=== PATIENT | male | born 1960 | race Caucasian/White ===

== ENCOUNTER 2020-01-07 14:30 | Inpatient (IN) | payer MEDICARE, MEDICAID ==
[~2020-01-07] VITALS: Ht 165.1 cm; Wt 81.6 kg
[2020-01-07] MEDS ORDERED: SODIUM CHLORIDE 0.9% 1,000 ML IV ONE (15:06)
[2020-01-07] MEDS ORDERED: IPRATROPIUM BROMIDE (0.02%) 0.5MG/2.5ML NEB HHN STA (15:36)
[2020-01-07] MEDS ORDERED: ALBUTEROL (0.083%) 2.5MG/3ML NEB HHN STA (15:36)
[2020-01-07 15:40] LABS: CHLORIDE 106 mEq/L (98-107)
[2020-01-07 15:43] LABS: BASOPHILS % 0.7 % (0.0-2.0); HEMATOCRIT. 52.8 % (42.0-52.0); HEMOGLOBIN. 18.5 g/dL (14.0-18.0); INR 0.9; LYMPHOCYTES % 35.3 % (20.0-50.0); MEAN CORPUSCULAR HEMOGLOBIN 31.9 pg (28.0-32.0); MEAN PLATELET VOLUME 10.1 fl (7.4-10.4); MONOCYTES % 8.1 % (2.0-8.0); NEUTROPHILS % 51.9 % (40.0-76.0); PLATELET 196 x1000/uL (130-400); PROTHROMBIN TIME 10.2 sec (9.6-11.0); RED CELL DISTRIBUTION WIDTH 13.9 % (11.6-14.6)
[2020-01-07 15:45] LABS: ETHANOL BLOOD < 10 mg/dL
[2020-01-07] MEDS ORDERED: LORAZEPAM 2MG/ML CPJ IV ONE (15:45)
[2020-01-07 16:13] LABS: CREATINE KINASE 89 IU/L (39-308)
[2020-01-07 18:09] LABS: CLARITY URINE CLEAR (CLEAR); COLOR URINE YELLOW (YELLOW); KETONES URINE NEGATIVE (NEGATIVE); LEUKOCYTE ESTERASE URINE TRACE (NEGATIVE); NITRITE URINE NEGATIVE (NEGATIVE); OCCULT BLOOD URINE TRACE (NEGATIVE); PH URINE 7.5 (4.5-8.0); PROTEIN URINE TRACE (NEGATIVE); SPECIFIC GRAVITY URINE 1.018 (1.005-1.030)
[2020-01-07] MEDS ORDERED: POTASSIUM CHLORIDE 20MEQ TABLET SR PO ONE (18:15)
[2020-01-07 18:32] LABS: *AMPHETAMINES SCREEN URINE NEGATIVE (NEGATIVE); *BARBITURATES SCREEN URINE NEGATIVE (NEGATIVE); *COCAINE SCREEN URINE NEGATIVE (NEGATIVE); CANNABINOID URINE SCREEN NEGATIVE (NEGATIVE); METHADONE URINE SCREEN NEGATIVE (NEGATIVE); OPIATES URINE SCREEN NEGATIVE (NEGATIVE)
[2020-01-07 18:33] LABS: *BENZODIAZEPINES SCREEN URINE NEGATIVE (NEGATIVE)
[2020-01-07 18:36] LABS: PHENCYCLIDINE URINE SCREEN NEGATIVE (NEGATIVE)
[2020-01-07] MEDS ORDERED: CEFTRIAXONE 1 G PREMIX 50 ML IV ONE (18:45)
[2020-01-07] MEDS ORDERED: ALBUTEROL (0.083%) 2.5MG/3ML NEB ONE (19:47)
[2020-01-07] MEDS ORDERED: IPRATROPIUM BROMIDE (0.02%) 0.5MG/2.5ML NEB ONE (19:48)
[2020-01-07] MEDS ORDERED: ONDANSETRON HCL 4MG/2ML INJ IV PRN (21:00)
[2020-01-07] MEDS ORDERED: ACETAMINOPHEN 325MG TABLET PO PRN ×2 (21:00)
[2020-01-07] MEDS ORDERED: LORAZEPAM 0.5MG TABLET PO PRN (21:00)
[2020-01-07] MEDS ORDERED: DEXTROSE 50% WATER 50ML SYRINGE IV PRN (21:00)
[2020-01-07] MEDS ORDERED: CEFTRIAXONE 1 G PREMIX 50 ML IV SCH (21:00)
[2020-01-07] MEDS ORDERED: CLONIDINE 0.1MG TABLET PO PRN (21:00)
[2020-01-07] MEDS: SODIUM CHLORIDE 0.9% INJ 3ML FLUSH IVF SCH (22:00)
[2020-01-08 04:48] LABS: BASOPHILS % 0.9 % (0.0-2.0); EOSINOPHILS % 4.5 % (0.0-5.0); HEMATOCRIT. 45.8 % (42.0-52.0); LYMPHOCYTES % 35.7 % (20.0-50.0); MEAN CORPUSCULAR HEMOGLOBIN 31.9 pg (28.0-32.0); MEAN CORPUSCULAR VOLUME 91.7 fL (80.0-94.0); MEAN PLATELET VOLUME 9.9 fl (7.4-10.4); NEUTROPHILS % 49.9 % (40.0-76.0); PLATELET 159 x1000/uL (130-400); RED CELL DISTRIBUTION WIDTH 13.9 % (11.6-14.6)
[2020-01-08 04:49] LABS: CHLORIDE 109 mEq/L (98-107)
[2020-01-08 05:00] LABS: PHOSPHORUS 3.5 mg/dL (2.5-4.9)
[2020-01-08 05:01] LABS: LDL CHOLESTEROL 164 mg/dL (5-100)
[2020-01-08 05:02] LABS: HDL CHOLESTEROL 37 mg/dL (40-59)
[2020-01-08 08:40] VITALS: BP 130/100
[2020-01-08 09:45] VITALS: BP 130/100
[2020-01-08] MEDS: AMLODIPINE 10MG TABLET PO SCH (10:00)
[2020-01-08] MEDS: ENOXAPARIN 40MG/0.4ML SYR SUBCUT SCH (10:00)
[2020-01-08] MEDS: ASPIRIN 81MG EC TABLET PO SCH (10:00)
[2020-01-08] MEDS: BLOOD SUGAR DIAGNOSTIC STRIP TEST SCH ×3 (11:45→20:16)
[2020-01-08] MEDS ORDERED: ATOR10TA69 MT (11:52)
[2020-01-08] MEDS ORDERED: AMLO10TA4 MT (11:52)
[2020-01-08] MEDS ORDERED: FAMO20TA8 MT (11:52)
[2020-01-08] MEDS ORDERED: ASPI-1497 MT (11:52)
[2020-01-08] MEDS ORDERED: DONE10TA43 MT (11:52)
[2020-01-08] MEDS ORDERED: LISI-186 MT (11:52)
[2020-01-08] MEDS ORDERED: LEVO25TA7 MT (11:52)
[2020-01-08] MEDS ORDERED: VENL37.586 MT (11:52)
[2020-01-08 12:00] VITALS: BP 130/94
[2020-01-08] MEDS: INSULIN LISPRO 100 UNITS/ML SUBCUT SCH ×3 (12:15→20:16)
[2020-01-08] MEDS: SODIUM CHLORIDE 0.9% INJ 3ML FLUSH IVF SCH ×2 (14:00→20:42)
[2020-01-08 16:00] VITALS: BP 145/96
[2020-01-08] MEDS: IPRATROPIUM/ALBUTEROL 0.5-3(2.5)MG/3ML NEB HHN PRN (18:25)
[2020-01-08 20:00] VITALS: BP 134/86
[2020-01-08] MEDS: ATORVASTATIN CALCIUM 40MG TABLET PO SCH (20:41)
[2020-01-08] MEDS: IPRATROPIUM/ALBUTEROL 0.5-3(2.5)MG/3ML NEB HHN SCH (22:08)
[2020-01-09] VITALS: BP 153/119
[2020-01-09 04:00] VITALS: BP 130/90
[2020-01-09] MEDS: IPRATROPIUM/ALBUTEROL 0.5-3(2.5)MG/3ML NEB HHN SCH ×3 (04:21→15:57)
[2020-01-09] MEDS: BLOOD SUGAR DIAGNOSTIC STRIP TEST SCH ×4 (06:22→20:42)
[2020-01-09] MEDS: INSULIN LISPRO 100 UNITS/ML SUBCUT SCH ×4 (06:22→20:42)
[2020-01-09 08:00] VITALS: BP 117/93
[2020-01-09] MEDS: AMLODIPINE 10MG TABLET PO SCH (08:36)
[2020-01-09] MEDS: ENOXAPARIN 40MG/0.4ML SYR SUBCUT SCH (08:36)
[2020-01-09] MEDS: ASPIRIN 81MG EC TABLET PO SCH (09:25)
[2020-01-09 12:00] VITALS: BP 132/92
[2020-01-09] MEDS: SODIUM CHLORIDE 0.9% INJ 3ML FLUSH IVF SCH ×2 (13:44→21:20)
[2020-01-09] MEDS ORDERED: PAROXETINE HCL 10MG TABLET PO SCH (15:00)
[2020-01-09 16:00] VITALS: BP 122/54
[2020-01-09 20:00] VITALS: BP 124/82
[2020-01-09] MEDS: IPRATROPIUM/ALBUTEROL 0.5-3(2.5)MG/3ML NEB HHN PRN (20:34)
[2020-01-09] MEDS: ATORVASTATIN CALCIUM 40MG TABLET PO SCH (20:42)
== END 2020-01-09 21:20 | DRG 65 ==
LOC: EDSEX 14:30 → ER 14:45 → 5WST 20:11 → EDBEDREQTM 20:14 → EDBEDREQ 20:14 → ENRESERV 01-08 07:42
PROVIDERS: ADMIT Internal Medicine; ATTEND Internal Medicine
PROC: 4A10X4Z Monitoring of Central Nervous Electrical Activity, External Approach (ICD-10-PCS; principal; 2020-01-09)
DX: I63.312 Cerebral infarction due to thrombosis of left middle cerebral artery (principal); N39.0 Urinary tract infection, site not specified; G81.91 Hemiplegia, unspecified affecting right dominant side; E11.9 Type 2 diabetes mellitus without complications; E87.6 Hypokalemia; I10 Essential (primary) hypertension; F32.9 Major depressive disorder, single episode, unspecified; F41.0 Panic disorder [episodic paroxysmal anxiety]; F41.9 Anxiety disorder, unspecified; E66.01 Morbid (severe) obesity due to excess calories; E78.5 Hyperlipidemia, unspecified; R74.0 Nonspecific elevation of levels of transaminase and lactic acid dehydrogenase [LDH]; R47.81 Slurred speech; Z68.30 Body mass index [BMI] 30.0-30.9, adult; Z79.899 Other long term (current) drug therapy; I69.334 Monoplegia of upper limb following cerebral infarction affecting left non-dominant side
CPT/HCPCS: 36415; 70551; 71045; 80053; 80061; 80305; 80320; 81003; 82550; 82962; 83036; 83605; 83735; 83880; 84100; 84484; 85025; 92523; 92610; 93005; 93306; 93880; 94640; 97116; 97162; 97166; 97530; 99285; J0696; J1650; J7030; G0480

== ENCOUNTER 2020-11-03 17:22 | Inpatient (IN) | payer MEDICARE, OTHER ==
[~2020-11-03] VITALS: Ht 172.7 cm; Wt 95.3 kg
[~2020-11-03 17:22] MED LIST: AMLO10TA4 MT; ASPI-1497 MT; ATOR10TA69 MT; DONE10TA43 MT; FAMO20TA8 MT; LEVO25TA7 MT; LISI-186 MT; VENL37.586 MT
[2020-11-03] MEDS ORDERED: ALBUTEROL (0.083%) 2.5MG/3ML NEB HHN STA (17:39)
[2020-11-03] MEDS ORDERED: METHYLPREDNISOLONE SOD SUCC 125 MG/2 ML VIAL IV STA (17:39)
[2020-11-03] MEDS ORDERED: IPRATROPIUM BROMIDE (0.02%) 0.5MG/2.5ML NEB HHN STA (17:39)
[2020-11-03] MEDS ORDERED: ONDANSETRON HCL 4MG/2ML INJ IV ONE (17:45)
[2020-11-03] MEDS ORDERED: LEVETIRACETAM 1000MG PREMIX 100 ML IV ONE (18:30)
[2020-11-03] MEDS ORDERED: SODIUM CHLORIDE 0.9% 1,000 ML IV ONE (18:30)
[2020-11-03 18:49] LABS: BASOPHILS % 0.5 % (0.0-2.0); EOSINOPHILS % 4.2 % (0.0-5.0); HEMATOCRIT. 46.9 % (42.0-52.0); HEMOGLOBIN. 15.7 g/dL (14.0-18.0); LYMPHOCYTES % 40.9 % (20.0-50.0); MEAN CORPUSCULAR HEMOGLOBIN 30.7 pg (28.0-32.0); MEAN CORPUSCULAR VOLUME 91.6 fL (80.0-94.0); MEAN PLATELET VOLUME 10.5 fl (7.4-10.4); MONOCYTES % 7.9 % (2.0-8.0); NEUTROPHILS % 46.5 % (40.0-76.0); PLATELET 152 x1000/uL (130-400); RED BLOOD CELL COUNT 5.12 mill/uL (4.7-6.1); RED CELL DISTRIBUTION WIDTH 14.1 % (11.6-14.6)
[2020-11-03 18:55] LABS: CHLORIDE 104 mEq/L (98-107)
[2020-11-03 18:59] LABS: ETHANOL BLOOD < 10 mg/dL
[2020-11-03] MEDS ORDERED: AZITHROMYCIN 500 MG in DEXT 5% WATER 250 ML IV STA (19:01)
[2020-11-03 19:04] LABS: CREATINE KINASE 69 IU/L (39-308)
[2020-11-03] MEDS ORDERED: CEFTRIAXONE 1 G PREMIX 50 ML IV ONE (19:15)
[2020-11-03] MEDS ORDERED: AZITHROMYCIN 500 MG in DEXT 5% WATER 250 ML IV SCH (21:00)
[2020-11-03] MEDS ORDERED: MORPHINE SULFATE 2 MG/ML CPJ (NOT FOR IM USE) IV PRN (22:45)
[2020-11-03] MEDS ORDERED: ALBUTEROL 6.7GM HFA INHALER ORI PRN (22:45)
[2020-11-03] MEDS ORDERED: DOCUSATE SODIUM 100MG CAPSULE PO PRN (22:45)
[2020-11-03] MEDS ORDERED: GUAIFENESIN 200MG/10ML SUGAR FREE UDC PO PRN (22:45)
[2020-11-03] MEDS ORDERED: CLONIDINE 0.1MG TABLET PO PRN (22:45)
[2020-11-03] MEDS ORDERED: DEXTROSE 50% WATER 50ML SYRINGE IV PRN (22:45)
[2020-11-03] MEDS ORDERED: DIPHENHYDRAMINE 50MG/ML VIAL IV PRN (22:45)
[2020-11-03] MEDS ORDERED: HYDROCODONE/ACETAMINOPHEN 5/325MG TABLET PO PRN (22:45)
[2020-11-03] MEDS ORDERED: ACETAMINOPHEN 325MG TABLET PO PRN (22:45)
[2020-11-03] MEDS ORDERED: ENOXAPARIN 40MG/0.4ML SYR SUBCUT SCH (22:45)
[2020-11-03] MEDS ORDERED: MAGNESIUM/ALUMINUM HYDROXIDE/SIMETHICONE 30ML UDC PO PRN (22:45)
[2020-11-03] MEDS ORDERED: ONDANSETRON HCL 4MG/2ML INJ IV PRN (22:45)
[2020-11-03] MEDS ORDERED: LORAZEPAM 2MG/ML CPJ IV PRN (22:45)
[2020-11-03] MEDS ORDERED: POTASSIUM CHLORIDE 20MEQ TABLET SR PO NR (23:00)
[2020-11-03] MEDS: ENOXAPARIN 30MG/0.3ML SYR SUBCUT SCH (23:20)
[2020-11-03] MEDS: INSULIN LISPRO 100 UNITS/ML SUBCUT SCH (23:21)
[2020-11-04] VITALS: BP 123/85
[2020-11-04 04:00] VITALS: BP 120/89
[2020-11-04] MEDS: BLOOD SUGAR DIAGNOSTIC STRIP TEST SCH ×4 (06:22→21:03)
[2020-11-04] MEDS: SODIUM CHLORIDE 0.9% INJ 3ML FLUSH IVF SCH ×3 (06:22→21:04)
[2020-11-04 07:32] LABS: CHLORIDE 108 mEq/L (98-107)
[2020-11-04 07:34] LABS: BASOPHILS % 0.1 % (0.0-2.0); HEMATOCRIT. 43.3 % (42.0-52.0); HEMOGLOBIN. 14.9 g/dL (14.0-18.0); LYMPHOCYTES % 10.4 % (20.0-50.0); MEAN CORPUSCULAR HEMOGLOBIN 31.3 pg (28.0-32.0); MEAN CORPUSCULAR VOLUME 91.3 fL (80.0-94.0); MEAN PLATELET VOLUME 11.1 fl (7.4-10.4); MONOCYTES % 1.4 % (2.0-8.0); NEUTROPHILS % 88.1 % (40.0-76.0); PLATELET 143 x1000/uL (130-400); RED BLOOD CELL COUNT 4.75 mill/uL (4.7-6.1); RED CELL DISTRIBUTION WIDTH 14.2 % (11.6-14.6)
[2020-11-04 08:00] VITALS: BP 120/79
[2020-11-04] MEDS: ENOXAPARIN 30MG/0.3ML SYR SUBCUT SCH ×2 (08:35→21:03)
[2020-11-04] MEDS: INSULIN LISPRO 100 UNITS/ML SUBCUT SCH ×4 (08:37→21:06)
[2020-11-04] MEDS ORDERED: LEVETIRACETAM 500MG TABLET PO SCH (09:00)
[2020-11-04 12:00] VITALS: BP 107/84
[2020-11-04 16:00] VITALS: BP 134/81
[2020-11-04] MEDS: CEFTRIAXONE 1,000 MG in DEXTROSE 5% WATER 50 ML IV SCH (18:47)
[2020-11-04 20:00] VITALS: BP 136/91
[2020-11-04] MEDS ORDERED: AZITHROMYCIN 500 MG in DEXT 5% WATER 250 ML IV SCH (21:00)
[2020-11-04] MEDS ORDERED: CEFTRIAXONE 1 G PREMIX 50 ML IV SCH (21:00)
[2020-11-04] MEDS: LEVETIRACETAM 500MG TABLET PO SCH (21:03)
[2020-11-04] MEDS ORDERED: ALBUTEROL (0.083%) 2.5MG/3ML NEB HHN PRN (21:30)
[2020-11-05] VITALS: BP 138/91
[2020-11-05 04:00] VITALS: BP 135/92
[2020-11-05] MEDS: SODIUM CHLORIDE 0.9% INJ 3ML FLUSH IVF SCH ×2 (06:16→15:36)
[2020-11-05 06:17] LABS: BASOPHILS % 0.3 % (0.0-2.0); EOSINOPHILS % 0.2 % (0.0-5.0); HEMATOCRIT. 42.8 % (42.0-52.0); HEMOGLOBIN. 14.3 g/dL (14.0-18.0); LYMPHOCYTES % 24.6 % (20.0-50.0); MEAN CORPUSCULAR HEMOGLOBIN 30.7 pg (28.0-32.0); MEAN CORPUSCULAR VOLUME 91.5 fL (80.0-94.0); MEAN PLATELET VOLUME 10.9 fl (7.4-10.4); MONOCYTES % 5.5 % (2.0-8.0); NEUTROPHILS % 69.4 % (40.0-76.0); PLATELET 134 x1000/uL (130-400); RED BLOOD CELL COUNT 4.67 mill/uL (4.7-6.1); RED CELL DISTRIBUTION WIDTH 14.6 % (11.6-14.6)
[2020-11-05] MEDS: BLOOD SUGAR DIAGNOSTIC STRIP TEST SCH ×3 (06:20→17:07)
[2020-11-05 06:21] LABS: CHLORIDE 110 mEq/L (98-107)
[2020-11-05 06:30] LABS: LDL CHOLESTEROL 89 mg/dL (5-100)
[2020-11-05 06:32] LABS: HDL CHOLESTEROL 51 mg/dL (40-59)
[2020-11-05 07:54] VITALS: BP 121/86
[2020-11-05] MEDS: LEVETIRACETAM 500MG TABLET PO SCH (08:04)
[2020-11-05] MEDS: ENOXAPARIN 30MG/0.3ML SYR SUBCUT SCH (08:05)
[2020-11-05] MEDS: INSULIN LISPRO 100 UNITS/ML SUBCUT SCH ×3 (08:06→17:21)
[2020-11-05 11:53] VITALS: BP 130/100
[2020-11-05] MEDS ORDERED: IPRATROPIUM/ALBUTEROL 0.5-3(2.5)MG/3ML NEB HHN SCH (12:00)
[2020-11-05] MEDS: METHYLPREDNISOLONE SOD SUCC 40 MG/ML VIAL IV SCH ×2 (12:27→15:40)
[2020-11-05 15:24] VITALS: BP 136/103
[2020-11-05] MEDS: CEFTRIAXONE 1,000 MG in DEXTROSE 5% WATER 50 ML IV SCH (17:07)
[2020-11-05 17:36] VITALS: BP 136/103
== END 2020-11-05 18:26 | disposition home or self-care (01) | DRG 100 ==
LOC: ER 17:22 → 6WST 20:33 → EDBEDREQTM 20:37 → EDBEDREQ 20:37 → ENRESERV 22:48
PROVIDERS: ADMIT Internal Medicine; ATTEND Internal Medicine
DX: G40.909 Epilepsy, unspecified, not intractable, without status epilepticus (principal); J96.00 Acute respiratory failure, unspecified whether with hypoxia or hypercapnia; J18.9 Pneumonia, unspecified organism; I69.354 Hemiplegia and hemiparesis following cerebral infarction affecting left non-dominant side; E87.6 Hypokalemia; I10 Essential (primary) hypertension; E03.9 Hypothyroidism, unspecified; E11.9 Type 2 diabetes mellitus without complications; J45.909 Unspecified asthma, uncomplicated; E78.5 Hyperlipidemia, unspecified; F41.9 Anxiety disorder, unspecified; Z82.49 Family history of ischemic heart disease and other diseases of the circulatory system; Z79.82 Long term (current) use of aspirin; Z79.899 Other long term (current) drug therapy
CPT/HCPCS: 36415; 70551; 71045; 80048; 80053; 80061; 80320; 82550; 82962; 83036; 83880; 84484; 85025; 93005; 93880; 94644; 95816; 96365; 99291; J0456; J0696; J1650; J1815; J1953; J2405; J2920; J2930; J7030; J7040; J7060; G0480

== ENCOUNTER 2020-12-12 10:21 | Emergency (ER) | payer MEDICARE, OTHER ==
[~2020-12-12] VITALS: Ht 162.6 cm; Wt 87.0 kg
[2020-12-12 11:12] LABS: BASOPHILS % 0.7 % (0.0-2.0); HEMATOCRIT. 46.6 % (42.0-52.0); HEMOGLOBIN. 15.9 g/dL (14.0-18.0); LYMPHOCYTES % 34.8 % (20.0-50.0); MEAN CORPUSCULAR HEMOGLOBIN 31.3 pg (28.0-32.0); MEAN CORPUSCULAR VOLUME 91.7 fL (80.0-94.0); MEAN PLATELET VOLUME 10.8 fl (7.4-10.4); MONOCYTES % 6.2 % (2.0-8.0); NEUTROPHILS % 53.3 % (40.0-76.0); PLATELET 175 x1000/uL (130-400); RED BLOOD CELL COUNT 5.09 mill/uL (4.7-6.1); RED CELL DISTRIBUTION WIDTH 14.9 % (11.6-14.6)
[2020-12-12 11:20] LABS: CHLORIDE 108 mEq/L (98-107)
[2020-12-12] MEDS ORDERED: ALBUTEROL (0.5%) 2.5MG/0.5ML NEB HHN ONE (11:45)
[2020-12-12] MEDS ORDERED: PREDNISONE 20MG TABLET PO ONE (11:45)
[2020-12-12] MEDS ORDERED: ALBUTEROL (0.083%) 2.5MG/3ML NEB ONE (12:01)
[2020-12-12] MEDS ORDERED: MONT10TA21 MT (13:28)
[2020-12-12] MEDS ORDERED: OLOD4MIS2 IH (13:36)
[2020-12-12 13:38] VITALS: BP 118/76
== END 2020-12-12 14:15 | disposition home or self-care (01) ==
LOC: ER 10:21
DX: J45.901 Unspecified asthma with (acute) exacerbation (principal); E11.9 Type 2 diabetes mellitus without complications; I10 Essential (primary) hypertension; Z79.82 Long term (current) use of aspirin; Z86.59 Personal history of other mental and behavioral disorders; Z86.73 Personal history of transient ischemic attack (TIA), and cerebral infarction without residual deficits
CPT/HCPCS: 36415; 71045; 80053; 83880; 84484; 85025; 93005; 94640; 99285; J7512

== ENCOUNTER 2021-05-11 15:16 | Emergency (ER) | payer MEDICARE, MEDICAID ==
[~2021-05-11] VITALS: Ht 167.6 cm; Wt 91.0 kg
[~2021-05-11 15:16] MED LIST changes: +MONT10TA21 MT; +OLOD4MIS2 IH
[2021-05-11] MEDS ORDERED: IBUPROFEN 800MG TABLET PO ONE (16:45)
[2021-05-11 17:13] VITALS: BP 16/82
[2021-05-11] MEDS ORDERED: IBUP-2030 MT (17:45)
== END 2021-05-11 18:10 | disposition home or self-care (01) ==
LOC: ER 15:16
DX: S43.402A Unspecified sprain of left shoulder joint, initial encounter (principal); I10 Essential (primary) hypertension; E11.9 Type 2 diabetes mellitus without complications; Z79.899 Other long term (current) drug therapy; Z79.82 Long term (current) use of aspirin; Z86.59 Personal history of other mental and behavioral disorders; Z86.73 Personal history of transient ischemic attack (TIA), and cerebral infarction without residual deficits; W18.30XA Fall on same level, unspecified, initial encounter; Y93.89 Activity, other specified; Y92.89 Other specified places as the place of occurrence of the external cause; Y99.8 Other external cause status
CPT/HCPCS: 73030; 99283

== ENCOUNTER 2022-10-22 15:53 | Emergency (ER) | payer MEDICARE, MEDICAID ==
[~2022-10-22] VITALS: Ht 167.6 cm; Wt 86.0 kg
[~2022-10-22 15:53] MED LIST changes: +IBUP-2030 MT
[2022-10-22] MEDS ORDERED: IBUPROFEN 400MG TABLET PO ONE (16:30)
[2022-10-22] MEDS ORDERED: ACETAMINOPHEN 325MG TABLET PO ONE (16:30)
[2022-10-22 18:59] VITALS: BP 137/94
[2022-10-22] MEDS ORDERED: IBUPROFEN 400MG TABLET PO NR (19:00)
[2022-10-22] MEDS ORDERED: ACETAMINOPHEN 325MG TABLET PO NR (19:00)
== END 2022-10-22 19:56 | disposition home or self-care (01) ==
LOC: ER 15:53
DX: R68.89 Other general symptoms and signs (principal); F41.9 Anxiety disorder, unspecified; E11.9 Type 2 diabetes mellitus without complications; E78.00 Pure hypercholesterolemia, unspecified; I10 Essential (primary) hypertension; Z86.73 Personal history of transient ischemic attack (TIA), and cerebral infarction without residual deficits; Z79.899 Other long term (current) drug therapy
CPT/HCPCS: 99284

== ENCOUNTER 2025-06-18 13:48 | Inpatient (IN) | payer MEDICARE, MEDICAID ==
[~2025-06-18] VITALS: Ht 160 cm; Wt 92.6 kg
[~2025-06-18 13:48] MED LIST changes: +AMLO-905 MT; -AMLO10TA4 MT; +MONT-46 MT; -MONT10TA21 MT
[2025-06-18 15:25] LABS: BASOPHILS % 0.7 % (0.0-2.0); EOSINOPHILS % 3.0 % (0.0-5.0); HEMATOCRIT. 52.4 % (42.0-52.0); HEMOGLOBIN. 17.2 g/dL (14.0-18.0); LYMPHOCYTES % 24.0 % (20.0-50.0); MEAN PLATELET VOLUME 11.2 fl (7.4-10.4); MONOCYTES % 5.6 % (2.0-8.0); NEUTROPHILS % 66.7 % (40.0-76.0); PLATELET 186 x1000/uL (130-400); RED BLOOD CELL COUNT 5.56 mill/uL (4.7-6.1); RED CELL DISTRIBUTION WIDTH 13.8 % (11.6-14.6)
[2025-06-18 15:43] LABS: INR 0.9
[2025-06-18 15:57] LABS: CREATININE 1.1 mg/dL (0.6-1.3); TROPONIN I HIGH SENSITIVITY 47 ng/L (3.0-53)
[2025-06-18 15:58] LABS: ASPARTATE AMINOTRANSFERASE 30 IU/L (<34); UREA NITROGEN BLOOD 12 mg/dL (9-23)
[2025-06-18 15:59] LABS: BILIRUBIN DIRECT 0.2 mg/dL (<=3.0); BILIRUBIN TOTAL 0.7 mg/dL (0.1-1.0)
[2025-06-18 16:00] LABS: PROTEIN TOTAL 8.2 g/dL (6.0-8.3)
[2025-06-18] MEDS: SODIUM CHLORIDE 0.9% (SEPSIS BOLUS) IV ONE (18:43)
[2025-06-18] MEDS: CEFTRIAXONE 1GM/50ML 50 ML IV ONE (20:07)
[2025-06-18] MEDS ORDERED: HYDROCODONE/ACETAMINOPHEN 5/325MG TABLET PO PRN (20:30)
[2025-06-18] MEDS ORDERED: MORPHINE SULFATE 2 MG/ML INJ (NOT FOR IM USE) IV PRN (20:30)
[2025-06-18] MEDS ORDERED: CLONIDINE 0.1MG TABLET PO PRN (20:30)
[2025-06-18] MEDS ORDERED: MAGNESIUM/ALUMINUM HYDROXIDE/SIMETHICONE 30ML UDC PO PRN (20:30)
[2025-06-18] MEDS ORDERED: ONDANSETRON HCL 4MG/2ML INJ IV PRN (20:30)
[2025-06-18] MEDS ORDERED: DEXTROSE 50% WATER 50ML SYRINGE IV PRN (20:30)
[2025-06-18] MEDS ORDERED: ACETAMINOPHEN 325MG TABLET PO PRN (20:30)
[2025-06-18] MEDS ORDERED: ZOLPIDEM TARTRATE 5MG TABLET PO PRN (20:30)
[2025-06-18] MEDS ORDERED: NALOXONE HCL 0.4MG/ML VIAL IV PRN (20:45)
[2025-06-18] MEDS: BLOOD SUGAR DIAGNOSTIC STRIP TEST SCH (21:00)
[2025-06-18] MEDS: ENOXAPARIN 40MG/0.4ML SYR SUBCUT SCH (21:00)
[2025-06-18] MEDS ORDERED: POLYETHYLENE GLYCOL 3350 (17GM) 1 DOSE PACK PO SCH (21:00)
[2025-06-18] MEDS: IPRATROPIUM/ALBUTEROL 0.5-3(2.5)MG/3ML NEB HHN ONE (21:05)
[2025-06-18 21:08] VITALS: PULSE 89; RESP 26; O2SAT 92
[2025-06-18 21:20] LABS: CLARITY URINE CLEAR (CLEAR); COLOR URINE YELLOW (YELLOW); GLUCOSE URINE NEGATIVE (NEGATIVE); KETONES URINE NEGATIVE (NEGATIVE); LEUKOCYTE ESTERASE URINE NEGATIVE (NEGATIVE); NITRITE URINE NEGATIVE (NEGATIVE); OCCULT BLOOD URINE NEGATIVE (NEGATIVE); PH URINE 7.5 (4.5-8.0); PROTEIN URINE NEGATIVE (NEGATIVE); SPECIFIC GRAVITY URINE 1.007 (1.005-1.030); UROBILINOGEN URINE 0.2 E.U./dL (0.2-1.0)
[2025-06-18 21:36] LABS: *AMPHETAMINES SCREEN URINE NEGATIVE (NEGATIVE); *BARBITURATES SCREEN URINE NEGATIVE (NEGATIVE); *BENZODIAZEPINES SCREEN URINE NEGATIVE (NEGATIVE)
[2025-06-18 21:37] LABS: *COCAINE SCREEN URINE NEGATIVE (NEGATIVE); ECSTASY MDMA SCREEN URINE NEGATIVE (NEGATIVE); METHADONE URINE SCREEN NEGATIVE (NEGATIVE); OPIATES URINE SCREEN NEGATIVE (NEGATIVE); PHENCYCLIDINE URINE SCREEN NEGATIVE (NEGATIVE)
[2025-06-18 21:58] LABS: TROPONIN I HIGH SENSITIVITY 41 ng/L (3.0-53)
[2025-06-18 22:00] LABS: CANNABINOID URINE SCREEN NEGATIVE (NEGATIVE)
[2025-06-18] MEDS: DOCUSATE SODIUM 100MG CAPSULE PO SCH (23:39)
[2025-06-18] MEDS: SODIUM CHLORIDE 0.9% 1,000 ML IV SCH (23:39)
[2025-06-18] MEDS: INSULIN LISPRO 100 UNITS/ML SUBCUT SCH ×2 (23:43→23:45)
[2025-06-18] MEDS: POLYETHYLENE GLYCOL 3350 (17GM) 1 DOSE PACK PO SCH (23:43)
[2025-06-19] VITALS (7 sets, daily range): BP systolic 127–156; BP diastolic 82–96; PULSE 63–85; RESP 17–20; TEMP 36.1–36.7; O2SAT 95–99
[2025-06-19 06:55] LABS: BASOPHILS % 0.4 % (0.0-2.0); EOSINOPHILS % 1.9 % (0.0-5.0); HEMATOCRIT. 42.5 % (42.0-52.0); HEMOGLOBIN. 14.3 g/dL (14.0-18.0); LYMPHOCYTES % 27.9 % (20.0-50.0); MEAN PLATELET VOLUME 10.7 fl (7.4-10.4); MONOCYTES % 8.3 % (2.0-8.0); NEUTROPHILS % 61.5 % (40.0-76.0); PLATELET 133 x1000/uL (130-400); RED BLOOD CELL COUNT 4.66 mill/uL (4.7-6.1); RED CELL DISTRIBUTION WIDTH 13.9 % (11.6-14.6)
[2025-06-19 07:21] LABS: CREATININE 0.7 mg/dL (0.6-1.3); UREA NITROGEN BLOOD 7 mg/dL (9-23)
[2025-06-19 07:34] LABS: TROPONIN I HIGH SENSITIVITY 40 ng/L (3.0-53)
[2025-06-19] MEDS: VENLAFAXINE HCL 37.5MG SR CAPSULE 24HR PO SCH (09:46)
[2025-06-19] MEDS: DONEPEZIL HCL 10MG TABLET PO SCH (09:46)
[2025-06-19] MEDS: MONTELUKAST SODIUM 10MG TABLET PO SCH (09:46)
[2025-06-19] MEDS: ASPIRIN 81MG EC TABLET PO SCH (09:46)
[2025-06-19] MEDS: AMLODIPINE 10MG TABLET PO SCH (09:46)
[2025-06-19] MEDS: PANTOPRAZOLE SODIUM 40 MG/VIAL IV SCH (09:46)
[2025-06-19] MEDS: LISINOPRIL 5MG TABLET PO SCH (09:46)
[2025-06-19] MEDS: LEVOTHYROXINE SODIUM 25MCG TABLET PO SCH (10:06)
[2025-06-19] MEDS: POTASSIUM CHLORIDE 20MEQ TABLET SR PO SCH (12:57)
[2025-06-19 15:13] LABS: *AMPHETAMINES SCREEN URINE NEGATIVE (NEGATIVE); *BARBITURATES SCREEN URINE NEGATIVE (NEGATIVE); *BENZODIAZEPINES SCREEN URINE NEGATIVE (NEGATIVE); *COCAINE SCREEN URINE NEGATIVE (NEGATIVE); CANNABINOID URINE SCREEN NEGATIVE (NEGATIVE); ECSTASY MDMA SCREEN URINE NEGATIVE (NEGATIVE); METHADONE URINE SCREEN NEGATIVE (NEGATIVE); OPIATES URINE SCREEN NEGATIVE (NEGATIVE); PHENCYCLIDINE URINE SCREEN NEGATIVE (NEGATIVE)
[2025-06-19] MEDS ORDERED: CEFTRIAXONE 1GM/50ML 50 ML IV SCH (20:00)
[2025-06-19] MEDS: CEFTRIAXONE 1GM/50ML 50 ML IV SCH (21:36)
[2025-06-19] MEDS: ATORVASTATIN CALCIUM 10MG TABLET PO SCH (21:36)
[2025-06-19] MEDS ORDERED: INSULIN LISPRO 100 UNITS/ML SUBCUT SCH (23:30)
[2025-06-20] VITALS: BP 177/80; PULSE 62; RESP 20; TEMP 36.5; O2SAT 97
[2025-06-20] MEDS: VANCOMYCIN 1.5GM/250ML 250 ML IV SCH (01:38)
[2025-06-20 04:00] VITALS: BP 113/81; PULSE 66; RESP 18; TEMP 36.8; O2SAT 97
[2025-06-20 08:00] VITALS: BP 129/90; PULSE 82; RESP 20; TEMP 36.4; O2SAT 97
[2025-06-20 09:08] LABS: CREATININE 0.7 mg/dL (0.6-1.3)
[2025-06-20 09:09] LABS: UREA NITROGEN BLOOD 5 mg/dL (9-23)
[2025-06-20] MEDS: LACTULOSE 20G/30ML UDC PO PRN (09:13)
[2025-06-20 09:22] LABS: BASOPHILS % 0.5 % (0.0-2.0); EOSINOPHILS % 3.5 % (0.0-5.0); HEMATOCRIT. 46.1 % (42.0-52.0); HEMOGLOBIN. 15.2 g/dL (14.0-18.0); LYMPHOCYTES % 26.3 % (20.0-50.0); MEAN PLATELET VOLUME 11.5 fl (7.4-10.4); MONOCYTES % 7.6 % (2.0-8.0); NEUTROPHILS % 62.1 % (40.0-76.0); PLATELET 141 x1000/uL (130-400); RED BLOOD CELL COUNT 5.02 mill/uL (4.7-6.1); RED CELL DISTRIBUTION WIDTH 14.3 % (11.6-14.6)
[2025-06-20 12:00] VITALS: BP 137/86; PULSE 73; RESP 19; TEMP 36.5; O2SAT 97
[2025-06-20] MEDS: VANCOMYCIN 750MG/150ML (BAXTER) IV SCH (13:02)
[2025-06-20 16:00] VITALS: BP 132/88; PULSE 96; RESP 19; TEMP 36.6; O2SAT 98
[2025-06-20 20:00] VITALS: BP 119/83; PULSE 81; RESP 17; TEMP 36.4; O2SAT 98
[2025-06-21] VITALS: BP 129/89; PULSE 63; RESP 19; TEMP 36.2; O2SAT 98
[2025-06-21 04:00] VITALS: BP 135/92; PULSE 72; RESP 18; TEMP 36.2; O2SAT 99
[2025-06-21 08:00] VITALS: BP 127/79; PULSE 74; RESP 18; TEMP 36.6; O2SAT 98
[2025-06-21 12:00] VITALS: BP 130/80; PULSE 16; RESP 18; TEMP 35.7; O2SAT 98
[2025-06-21 12:01] LABS: BASOPHILS % 0.6 % (0.0-2.0); EOSINOPHILS % 3.9 % (0.0-5.0); HEMATOCRIT. 44.2 % (42.0-52.0); HEMOGLOBIN. 14.6 g/dL (14.0-18.0); LYMPHOCYTES % 20.1 % (20.0-50.0); MEAN PLATELET VOLUME 11.5 fl (7.4-10.4); MONOCYTES % 7.3 % (2.0-8.0); NEUTROPHILS % 68.1 % (40.0-76.0); PLATELET 139 x1000/uL (130-400); RED BLOOD CELL COUNT 4.81 mill/uL (4.7-6.1); RED CELL DISTRIBUTION WIDTH 14.0 % (11.6-14.6)
[2025-06-21 12:26] LABS: CREATININE 0.7 mg/dL (0.6-1.3); UREA NITROGEN BLOOD 5 mg/dL (9-23)
[2025-06-21] MEDS ORDERED: POLY17PO3 MT (14:02)
[2025-06-21] MEDS ORDERED: DOCU-138 MT (14:02)
[2025-06-21 16:00] VITALS: BP 129/81; PULSE 72; RESP 18; TEMP 36.2; O2SAT 94
[2025-06-21 18:16] VITALS: BP 129/81; PULSE 72; RESP 18; TEMP 97.1
== END 2025-06-21 19:19 | disposition home or self-care (01) | DRG 872 ==
LOC: ER 13:48 → 7WST 19:34 → EDBEDREQ 20:53 → EDBEDREQTM 20:53 → ENRESERV 21:34
PROVIDERS: ADMIT Internal Medicine; ATTEND Internal Medicine
DX: A41.9 Sepsis, unspecified organism (principal); K59.00 Constipation, unspecified; K62.89 Other specified diseases of anus and rectum; E03.9 Hypothyroidism, unspecified; E11.9 Type 2 diabetes mellitus without complications; E78.00 Pure hypercholesterolemia, unspecified; F41.9 Anxiety disorder, unspecified; I10 Essential (primary) hypertension; J45.909 Unspecified asthma, uncomplicated; Z86.73 Personal history of transient ischemic attack (TIA), and cerebral infarction without residual deficits; Z79.899 Other long term (current) drug therapy; Z82.49 Family history of ischemic heart disease and other diseases of the circulatory system
CPT/HCPCS: 36415; 71045; 74176; 80048; 80076; 80305; 80320; 81003; 82962; 83036; 83605; 83735; 84145; 84443; 84484; 85025; 87077; 93970; 94640; 96374; 99291; A4606; J0696; J1650; J1815; J2470; J3373; J7030; G0480